=== PATIENT | male | born 1960 | race Caucasian/White ===

== ENCOUNTER → 2016-05-08 | Outpatient (CLI) | payer OTHER ==
--- NOTE | 2016-05-08 09:34 | US ---
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 Findings: The right kidney measures 11.2 x 4.4 x 4.3 cm. The left kidney measures 10.6 x 4.7 x 4.4 cm. Both kidneys demonstrate no hydronephrosis, definite shadowing calculi, or perinephric fluid. Ri ght renal cortical thickness 1.2 cm and left renal cortical thickness 1.3 cm. Images of the bladder demonstrate patent bilateral ureteral jets with color flow imaging. Prevoid ramya dder volume 494 mL. Postvoid bladder residual is 78 mL. No shadowing bladder calculi. Impression: 1. No hydronephrosis. 2. Postvoid bladder residual 78 mL. 3. No definite shadowing renal calculi or perinephric fluid.
== END ==
LOC: FIMAGING 07:23
PROVIDERS: ATTEND Internal Medicine
DX: R10.9 Unspecified abdominal pain (principal); E29.1 Testicular hypofunction; B20 Human immunodeficiency virus [HIV] disease; Z79.899 Other long term (current) drug therapy

== ENCOUNTER → 2016-08-12 | Outpatient (CLI) | payer OTHER | LOC: FIMAGING 13:00 | PROVIDERS: ATTEND Internal Medicine | DX: R07.89 Other chest pain (principal) ==